=== PATIENT | male | born 1995 | race Caucasian/White ===

== ENCOUNTER 2021-09-10 15:32 | Emergency (ER) | payer BC, SELFPAY ==
[2021-09-10 15:33] VITALS: BP 147/114; PULSE 83; RESP 16; TEMP 36.2; O2SAT 97; BMI 26.6
--- NOTE | 2021-09-10 15:58 | EX.ED.DYSGE1 ---
HPI History of Present Illness Chief Complaint: Foreign Body Detail of Chief Complaint: food stuck in throat Informant: patient Onset/Context/Timing Onset: Hours (2) Context: Sudden Onset (eating chicken) Timing: Continuous Quality: obstruction Location: throat / upper esophagus Current Severity: Severe Maximum Severity: Severe Worsened by: trying to drink Relieved by: nothing Associated Symptoms Associated Symptoms: spitting up Narrative Narrative: Patient feels like chicken he was eating is stuck in his throat and he cannot swallow it or any liquids since this happened a couple hours ago. He has had this happen before and needed an EGD emergently to clear the obstruction, has not followed up afterwards. He states in the last month or so, he has felt this coming on but never had anything stuck 100% like it is now. No coughing or choking/dyspnea. He is healthy otherwise. PFSH PFSH Medical History no medical history no medical history Home Medications pantoprazole [Protonix] 40 mg PO BID 14 Days #28 tab 09/10/21 [Rx Last Taken Unknown] Allergy/AdvReac Type Severity Reaction Status Date / Time peanut Allergy Anaphylaxis Verified 09/10/21 15:42 shellfish derived Allergy Anaphylaxis Verified 09/10/21 15:42 Family History no significant family his Surgical History no surgical history no surgical history Social History Smoking Status: Never smoker ROS ROS ED Constitutional Constitutional ED: Denies chills or fever(s) Eyes Eyes: Denies change in vision or diplopia ENT ENT ED: Reports as per HPI; Denies rhinorrhea or sore throat Cardiovascular Cardiovascular: Denies chest pain or palpitations Respiratory/Chest Respiratory/Chest: Denies cough or dyspnea Gastrointestinal Gastrointestinal: Denies abdominal pain, diarrhea, nausea or vomiting Genitourinary Genitourinary ED: Denies dysuria or hematuria Musculoskeletal Musculoskeletal: Denies back pain or neck pain Integumentary Denies abscess or rash Neurologic Neurologic: Denies headache(s), paresthesias or weakness Psychiatric Psychiatric: Denies anxiety or suicidal thoughts EXAM Physical Exam Const Vital Signs: 09/10/21 15:33 Temperature 97.2 F L Temperature Source Temporal Pulse Rate 83 Respiratory Rate 16 Blood Pressure 147/114 H Blood Pressure Mean 125 Pulse Ox 97 Oxygen Delivery Method Room Air Positive well nourished and well developed Constitutional Narrative: Conversive in full sentences, no distress. Spitting occasionally in an emesis basin. Tolerating secretions. No stridor or hoarseness. General Appearance ED: well developed and NAD HEENT Reports moist mucous membranes normocephalic and atraumatic Eyes PERRL and EOMs intact bilaterally Neck full ROM and supple Resp normal respiratory effort and clear to auscultation bilaterally Cardio regular rate, regular rhythm and no murmurs GI non-tender and non-distended Auscultation: normoactive bowel sounds Palpation: soft Back/Spine no CVA tenderness General Back: other FROM Extremity normal to inspection General Extremety ED: Negative for edema, pulses abnormal or tenderness General Extremity: Negative for edema or pulses abnormal Neuro oriented x3, CN's II-XII intact bilaterally and no sensory deficits noted Sensorium / Orientation: awake and alert Motor Exam: strength 5/5 throughout Skin no rashes or lesions noted and no wounds MDM MDM MDM Narrative Medical decision making narrative: Discussed with GI Dr. Gregory. While waiting for endoscopy to get ready for him, the patient noticed a difference and then was able to swallow differently, and then drink water and felt like the food passed on its own. I discussed with GI again, they are ready for him, and he agrees that there could be some benefit to scoping him now to see if he has a stricture that could be dilated. Patient is amenable to that, I will go ahead and prescribe him PPI therapy twice daily for 2 weeks as advised by GI. Discharge Plan Triage Chief Complaint: Foreign Body ED Provider: Fady Greco Dx/Rx/DC Orders Clinical Impression: Esophageal obstruction due to food impaction Instructions: ED Esophageal Foreign Body, Resolved Prescriptions: New pantoprazole [Protonix] 40 mg tablet,delayed release (DR/EC) 40 mg PO BID 14 Days Qty: 28 RF: 0 Primary Care Provider: Care Physician,No Primary Referrals: Vitaliy Gregory, [STAFF PHYSICIAN] - (as directed by him) Care Physician,No Primary [Primary Care Provider] - Activity Restrictions/Additional Instructions: go directly to endoscopy for EGD now Disposition Disposition: Home, Self Care
--- NOTE | 2021-09-10 16:17 | CM.ED ---
Social Work Note Reason for Referral: No PCP SW reviewed chart. Pt has no PCP listed. SW in to speak with pt. Pt confirms he has no PCP. SW provided pt with list of PCP. Gabriella Bullock MSW, COMPENSATION SUPERVISOR
[2021-09-10 16:56] VITALS: RESP 16
--- NOTE | 2021-09-10 17:23 | SUR.PREOP ---
CASE CANCELLED DUE TO PT PASSING FOREIGN BODY, WAS SEEN AT BEDSIDE BY DR. DURAN. JULIA D/Ying IN PACU.
== END 2021-09-10 16:58 | disposition home or self-care (01) ==
PROVIDERS: Emergency Provider Emergency Medicine; Visit Provider Emergency Medicine
DX: K22.2 Esophageal obstruction (principal); T18.128A Food in esophagus causing other injury, initial encounter; X58.XXXA Exposure to other specified factors, initial encounter
CPT/HCPCS: 99283; J7030; J7120

== ENCOUNTER 2024-07-23 19:26 | Emergency (ER) | payer BC, SELFPAY ==
[2024-07-23 19:28] VITALS: BP 159/107; PULSE 106; RESP 15; TEMP 36.4; O2SAT 100
[2024-07-23 19:29] VITALS: BMI 28.5
--- NOTE | 2024-07-23 20:25 | RAD_ITS ---
PROCEDURE: NECK FOR SOFT TISSUE 07/23/2024 REASON FOR EXAM: FOREIGN BODY TECHNIQUE: AP and lateral view(s) of the soft tissues of the neck FINDINGS: Findings: No evidence of soft tissue swelling or radiopaque foreign body. Prevertebral and epiglottis contours appear normal. Other: RAD/Neck for Soft Tissue IMPRESSION: Normal soft tissue neck Reading Location: [id number]
--- NOTE | 2024-07-23 20:51 | ED.VIS.GI ---
HPI HPI - GI History of Present Illness Chief Complaint: Foreign Body Narrative Narrative: 29-year-old male presents with esophageal food bolus/impaction that has had since 1:30 PM. He states he was eating chicken, and felt like a piece was stuck in his throat. He tried to drink water and coughed a little bit of the chicken up, but still feels as if there is a foreign body. This was approximately 7 hours ago when this started. Of note, he states this has happened to him previously in the past but denies history of esophageal stricture or esophageal web. He states that he had to have endoscopy performed years ago. It was 2 years ago where he had a piece of food stuck again and came to the emergency department, but it passed on its own. He last tried to drink water as he was pulling into the emergency department but it came right back up. He states that the time spaces in between him spitting up his own saliva has been slowly increasing. Denies other symptoms or other significant past medical history. PFSH PFS Home Medications ?Medication ?Instructions ?Recorded ?Last Taken ?Type NK 07/23/24 Unknown History Allergy/AdvReac Type Severity Reaction Status Date / Time peanut Allergy Anaphylaxis Verified 07/23/24 19:28 pollen extracts Allergy Other Verified 07/23/24 19:28 shellfish derived Allergy Anaphylaxis Verified 07/23/24 19:28 Family History Other Diabetes Surgical History History of appendectomy Social History Smoking Status: Never smoker Smokeless tobacco user: snus alcohol intake: current alcohol intake frequency: a few times a week Alcohol type: beer ROS ROS ED ROS Narrative Review of systems positive for regurgitation of own saliva, inability to drink liquids, foreign body sensation in esophagus and throat and upper part of chest. No chest pain, no recent nausea or vomiting, no fevers or chills. EXAM Physical Exam Narrative Exam Narrative: Afebrile. Vital signs noted. Nontoxic-appearing. Cardiovascular examination reveals mild tachycardia. Lungs are clear to auscultation bilaterally. Abdomen soft and nontender with normoactive bowel sounds. Oropharynx inspection shows no evidence of foreign body, no current drooling, no trismus. Airway patent. Const Vital Signs: 07/23/24 19:28 07/23/24 21:10 Temperature 97.5 F L Temperature Source Temporal Pulse Rate 106 H Respiratory Rate 15 Respiratory Effort Normal Blood Pressure 159/107 H Blood Pressure Mean 124 Pulse Ox 100 Oxygen Delivery Method Room Air MDM MDM MDM Narrative Medical decision making narrative: Concern is for foreign body sensation versus esophageal food impaction While I was discussing with the patient and performing the history and physical, the patient gagged, and spit up a large amount of saliva that was nonbloody. My concern is for esophageal food impaction. RN ordered x-ray of the soft tissue neck was obtained and interpreted by myself independently. There is no acute process. Airway is patent. I reviewed the radiology report which confirms my independent interpretation. Patient will have an IV started and he was administered glucagon IV. IV was placed in the event that the glucagon is ineffective, and he would require endoscopy. Currently, there is no finisher denture on-call, however I will discuss patient with Dr. Botello with surgery to see if she can perform endoscopy as needed. I did review his prior ED visit and prior to endoscopy, patient passed the esophageal food bolus by himself. Upon repeat examination at approximately 2124, after glucagon, patient had stood up according to the RN and felt that the piece of chicken had passed. He was able to drink Coca-Cola. He also passed a bedside swallow of water. At this point in time, after review of his prior ED visit, it was recommended that he take a PPI twice a day for 2 weeks. I offered this to him again as the same thing had happened, but he declined and states that he would rather just follow-up with gastroenterology. I feel he can be discharged safely home with follow-up and I stressed the importance of follow-up with gastroenterology. Return instructions to the emergency department were reviewed. Disposition is discharged home, in stable condition. History & Record Review Discussion w/independent historian: Patient Radiography Diagnostic Testing: Clinical Impression(s) from Imaging Studies Soft Tissue Neck X-Ray 07/23/24 20:25 IMPRESSION: Normal soft tissue neck Reading Location: [id number] Discharge Plan Triage Chief Complaint: Foreign Body ED Provider: Urbano Padilla Dx/Rx/DC Orders Clinical Impression: Foreign body of esophagus, Dysphagia Instructions: ED Esophageal Foreign Body, Resolved, ED Dysphagia (Adult) Prescriptions: No Action NK Primary Care Provider: Care Physician,No Primary Referrals: FriendVitaliy, [Med Staff - Active Staff] - As soon as possible Care Physician,No Primary [Primary Care Provider] - Activity Restrictions/Additional Instructions: Chew your food thoroughly before swallowing. Follow-up with gastroenterology as soon as possible for endoscopy or other testing regarding your food getting stuck in your esophagus. Return with new or worsening symptoms. Print Language: Korean Disposition Disposition: Home, Self Care
[2024-07-23] MEDS: Glucagon 1 MG/ML Syringe IV (21:07)
== END 2024-07-23 21:38 | disposition home or self-care (01) ==
PROVIDERS: Emergency Provider Emergency Medicine; Visit Provider Emergency Medicine
DX: T18.128A Food in esophagus causing other injury, initial encounter (principal); R13.10 Dysphagia, unspecified
CPT/HCPCS: 70360; 96374; 99283; A4216; J1610